=== PATIENT | female | born 1970 | race Caucasian/White ===

== ENCOUNTER 2017-03-27 22:21 | Emergency (ER) | payer OTHER ==
[~2017-03-27] VITALS: Ht 162.6 cm; Wt 79.4 kg
[~2017-03-27 22:21] MED LIST: KEFLEX500 MG PO
[2017-03-27] MEDS ORDERED: METHIMAZOLE5 M1 PO (22:27)
--- NOTE | 2017-03-27 22:36 | ED GENERAL ADULT ---
History of Present Illness General Chief Complaint: General Adult Stated Complaint: NEEDLE STICK Source: patient Exam Limitations: no limitations Vital Signs & Intake/Output Vital Signs & Intake/Output ED Intake and Output 03/28 0000 03/27 1200 Intake Total Output Total Balance Patient 175 lb Weight Weight Reported by Patient Measurement Method Allergies Coded Allergies: NO KNOWN ALLERGIES (07/12/12) PER NURSE NKDA Reconcile Medications Cephalexin (Keflex) 500 MG CAP 1 TAB PO TID CELLULITIS Methimazole 5 MG TABLET 5 MG PO DAILY THYROID (Reported) Triage Note: PT TO TRIAGE S/P NEEDLESTICK FROM OTHER PT. PT IS UNAWARE IF PT HAS ANY TRANSMITTABLE DISEASES. Triage Nurses Notes Reviewed? yes HPI: Patient is a 46-year-old female reports needlestick injury to her left index finger. 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 Area bled immediately. Patient washed her finger immediately multiple times. Patient reports that she has received her hepatitis B vaccination previously. Source patient does not have any known communicable diseases. (CAITLIN ROCK) Past History Travel History Traveled to [place] past 21 day No Medical History Any Pertinent Medical History? see below for history Endocrine: hyperthyroidism Cancer(s): thyroid cancer Tetanus Vaccine: 10/25/15 Surgical History Surgical History: non-contributory Psychosocial History What is your primary language Cape Verdean Tobacco Use: Never used Family History Hx Contributory? No (CAITLIN ROCK) Review of Systems Review of Systems Constitutional: Reports: no symptoms. Cardiovascular: Denies: chest pain. GI: Denies: abdominal pain. Musculoskeletal: Reports: no symptoms. Skin: Reports: see HPI. Neurological/Psychological: Reports: anxiety (after needlestick). Hematologic/Endocrine: Reports: other (hx hyperthyroid). Immunologic/Allergic: Reports: no symptoms. (CAITLIN ROCK) Physical Exam Physical Exam General Appearance: well developed/nourished, alert, awake, anxious Head: atraumatic, normal appearance Eyes: Bilateral: normal appearance. Ears, Nose, Throat: hearing grossly normal Neck: full range of motion Respiratory: no respiratory distress Back: normal range of motion Extremities: 1mm puncture wound left distal index finger. Neurologic/Psych: no motor/sensory deficits, awake, alert, oriented x 3, normal gait Skin: warm/dry Core Measures ACS in differential dx? No CVA/TIA Diagnosis: No Severe Sepsis Present: No Septic Shock Present: No (CAITLIN ROCK) Progress Differential Diagnoses I considered the following diagnoses in my evaluation of the patient: needle stick, communicable disease exposure Plan of Care: Orders Procedure Date/time Status HIV EXPOSURE/NEEDLESTICK 03/27 2254 Complete HEPT C ANTIBODY 03/27 2254 Complete HEPT B SURFACE ANTIGEN 03/27 2254 Complete HIV EXPOSURE/NEEDLESTICK 03/27 2235 Complete HUMAN BETA HCG SCREEN 03/27 2235 Complete HEPT C ANTIBODY 03/27 2235 Complete GAMMA GLUTAMYL TRANSFERASE 03/27 2235 Complete COMPREHENSIVE METABOLIC PANEL 03/27 2235 Complete CBC WITHOUT DIFFERENTIAL 03/27 2235 Complete Laboratory Tests 03/27/172253: Anion Gap 13, Estimated GFR > 60, BUN/Creatinine Ratio 17.1, Glucose 83, Calcium 9.0, Total Bilirubin 0.4, GGT 24, AST 34, ALT 52, Alkaline Phosphatase 86, Total Protein 7.4, Albumin 4.3, Globulin 3.1, Albumin/Globulin Ratio 1.4, Total Beta HCG NEGATIVE, CBC w Diff NO MAN DIFF REQ, RBC 4.68, MCV 84.6, MCH 28.4, RDW 14.0 , MPV 7.9, Gran % 58.6, Lymphocytes % 30.2, Monocytes % 8.1, Eosinophils % 2.7, Basophils % 0.4, Absolute Granulocytes 7.3 H, Absolute Lymphocytes 3.7 H, Absolute Monocytes 1.0 H, Absolute Eosinophils 0.3, Absolute Basophils 0.1, PUBS MCHC 33.6, Hep Bs Antigen NONREACTIVE, Hepatitis C Antibody NONREACTIVE, HIV 1&2 Antibody NONREACTIVE Patient declined HIV prophylaxis after discussion of risks and benefits. Nursing pump service supervisor notified and is contacting the medical team of the source patient to obtain HIV and hepatitis testing. Baseline testing obtained from the exposed patient. Patient to follow-up with occupational medicine. (CAITLIN ROCK) Initial ED EKG: none (CAITLIN ROCK) Departure Departure Disposition: HOME OR SELF CARE Condition: Stable Clinical Impression Primary Impression: Needle stick injury of finger Referrals: COLIN FLANAGAN,TEOFILO Additional Instructions: Follow up with occupational medicine, call in the morning for appointment. Departure Forms: Customer Survey General Discharge Information (CAITLIN ROCK) PA/[employer]ATOR [employer]NACE Co-Sign Statement Statement: ED Attending supervision documentation- I saw and evaluated the patient. I have also reviewed all the pertinent lab results and diagnostic results. I agree with the findings and the plan of care as documented in the PA's/OPERATOR [employer] FURNACE's documentation. x I have reviewed the ED Record and agree with the PA's/OPERATOR [employer] FURNACE's documentation. [] Additions or exceptions (if any) to the PAs/OPERATOR [employer]ATING FURNACE's note and plan are summarized below: [] (ZAHRAA FLANAGAN,ANGELIQUE) Critical Care Note Critical Care Note Critical Care Time: non-applicable (CAITLIN ROCK)
[2017-03-27 23:24] LABS: ABSOLUTE BASOPHIL COUNT 0.1 /CUMM (0.0-0.2); ABSOLUTE EOSINOPHIL COUNT 0.3 /CUMM (0.0-0.7); ABSOLUTE GRANULOCYTE CT 7.3 /CUMM (1.4-6.5); ABSOLUTE LYMPH COUNT 3.7 /CUMM (1.2-3.4); BASOPHIL % 0.4 % (0.0-2.0); EOSINOPHIL % 2.7 % (0-5); GRANULOCYTE % 58.6 % (42.2-75.2); HEMATOCRIT 39.6 % (37-47); MEAN CORPUSCULAR HGB 28.4 PG (27.0-31.0); MEAN CORPUSCULAR HGB CONC 33.6 G/DL (33.0-37.0); MEAN CORPUSCULAR VOLUME 84.6 FL (81.0-99.0); MEAN PLATELET VOLUME 7.9 FL (7.4-10.4); PLATELET COUNT 369 /CUMM (130-400); RED BLOOD CELL CT 4.68 /CUMM (4.20-5.40); WHITE BLOOD CELL COUNT 12.4 /CUMM (4.8-10.8)
== END 2017-03-27 22:59 ==
LOC: ERH 22:21
PROVIDERS: Physician Assistant
DX: S61.231A Puncture wound without foreign body of left index finger without damage to nail, initial encounter (principal); W46.1XXA Contact with contaminated hypodermic needle, initial encounter; Y93.89 Activity, other specified; Y92.9 Unspecified place or not applicable
CPT/HCPCS: 86803; 87389

== ENCOUNTER 2018-06-15 06:42 | Emergency (ER) | payer OTHER ==
[~2018-06-15] VITALS: Ht 162.6 cm; Wt 83.9 kg
[~2018-06-15 06:42] MED LIST changes: +METHIMAZOLE5 M1 PO
[2018-06-15 06:52] VITALS: BP 125/68
[2018-06-15] MEDS ORDERED: LEVOTHYROXINE112 MCG PO (06:54)
--- NOTE | 2018-06-15 07:00 | ED HAND/WRIST INJURY COMPLAINT ---
History of Present Illness General Chief Complaint: General Adult Stated Complaint: "I GOT STUCK" (WORK RELATED) Source: patient, old records Exam Limitations: no limitations Vital Signs & Intake/Output Vital Signs & Intake/Output Vital Signs Date Time Temp Pulse Resp B/P B/P Pulse O2 O2 Flow FiO2 Mean Ox Delivery Rate 06/15 0652 98.1 64 18 125/68 98 Room Air Allergies Coded Allergies: NO KNOWN ALLERGIES (07/12/12) PER NURSE NKDA Reconcile Medications Cephalexin (Keflex) 500 MG CAP 1 TAB PO TID CELLULITIS Levothyroxine Sodium 112 MCG TABLET 1 TAB PO DAILY HYPOTHYROIDISM (Reported) Methimazole 5 MG TABLET 5 MG PO DAILY THYROID (Reported) Triage Note: 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 PT WASHED HER HAND PRIOR TO COMING TO ER. PT DENIES ANY OTHER COMPLAINTS. RESPIRATIONS NON-LABORED. SKIN WARM/DRY. A&OX3. Triage Nurses Notes Reviewed? yes Occurred: just prior to arrival Duration: minute(s):, constant Timing: recent history Injury Environment: work Severity: mild Pain/Injury Location: Left: Hand. Context: stab Method of Injury: Needlestick LMP (ages 10-50): unknown : No Patient currently breastfeeds: No HPI: Prior to admission after giving heparin injection the patient accidentally stuck herself in the palm of the left hand. She denies other injury fever chills nausea vomiting diarrhea abdominal pain chest pain shortness breath headache dysuria rash bleeding. Past History Travel History Traveled to [place] past 21 day No Medical History Any Pertinent Medical History? see below for history Endocrine: hypothyroidism Cancer(s): thyroid cancer Tetanus Vaccine: 10/25/15 Surgical History Surgical History: non-contributory Psychosocial History What is your primary language Georgian Tobacco Use: Never used Family History Hx Contributory? No Review of Systems Review of Systems Constitutional: Reports: no symptoms. EENTM: Reports: no symptoms. Respiratory: Reports: no symptoms. Cardiovascular: Reports: no symptoms. GI: Reports: no symptoms. Genitourinary: Reports: no symptoms. Musculoskeletal: Reports: no symptoms. Skin: Reports: see HPI. Neurological/Psychological: Reports: no symptoms. Hematologic/Endocrine: Reports: no symptoms. Immunologic/Allergic: Reports: no symptoms. All Other Systems: Reviewed and Negative Physical Exam Physical Exam General Appearance: well developed/nourished, alert, awake, comfortable Head: atraumatic, normal appearance Eyes: Bilateral: normal appearance, PERRL, EOMI. Ears, Nose, Throat: normal pharynx, normal ENT inspection, hearing grossly normal Neck: normal inspection, supple, full range of motion, no midline tenderness Cardiovascular/Respiratory: normal breath sounds, normal peripheral pulses, regular rate/rhythm Back: normal inspection, normal range of motion Shoulder Left: normal range of motion, normal inspection Shoulder Right: normal range of motion, normal inspection Elbow Left: normal range of motion, normal inspection Elbow Right: normal range of motion, normal inspection Forearm Left: normal range of motion, normal inspection Forearm Right: normal range of motion, normal inspection Wrist Left: normal range of motion, normal inspection Wrist Right: normal range of motion, normal inspection Hand Left: normal inspection, normal range of motion Hand Right: normal inspection, normal range of motion Reflexes: 2+: bicep (R), bicep (L). Neurologic/Tendon: normal sensation, normal motor functions Skin: intact, normal color, warm/dry Lymphatic: no anterior cervical doc Progress Differential Diagnosis: contusion, needlestick Plan of Care: Orders Procedure Date/time Status HIV EXPOSURE/NEEDLESTICK 06/15 651 Active HUMAN BETA HCG SCREEN 06/15 0651 Active HEPT C ANTIBODY 06/15 651 Active HEPT B SURFACE ANTIBODY 06/15 0651 Active GAMMA GLUTAMYL TRANSFERASE 06/15 651 Active COMPREHENSIVE METABOLIC PANEL 06/15 651 Active CBC WITHOUT DIFFERENTIAL 06/15 651 Active TRNSFRASE ASPART AMINO 06/15 651 Active TRNSFRAS ALANINE AMINO 06/15 0651 Active Laboratory Tests 06/15/18 0710: Sodium Pending, Potassium Pending, Chloride Pending, Carbon Dioxide Pending, Anion Gap Pending, BUN Pending, Creatinine Pending, BUN/Creatinine Ratio Pending , Glucose Pending, Calcium Pending, Total Bilirubin Pending, GGT Pending, AST Pending, ALT Pending, Alkaline Phosphatase Pending, Total Protein Pending, Albumin Pending, Globulin Pending, Albumin/Globulin Ratio Pending, Total Beta HCG Pending, CBC w Diff Pending, WBC Pending, RBC Pending, Hgb Pending, Hct Pending, MCV Pending, MCH Pending, MCHC Pending, RDW Pending, Plt Count Pending, MPV Pending, Hep Bs Antibody Pending, Hepatitis C Antibody Pending, HIV 1&2 Antibody Pending Departure Departure Time of Disposition: 658 Disposition: HOME OR SELF CARE Condition: Stable Clinical Impression Primary Impression: Needlestick injury accident Referrals: Sonny FLANAGAN,Mj Holcomb (PCP/Family) Departure Forms: Customer Survey General Discharge Information
[2018-06-15 07:26] LABS: ABSOLUTE BASOPHIL COUNT 0 /CUMM (0.0-0.2); ABSOLUTE EOSINOPHIL COUNT 0.3 /CUMM (0.0-0.7); ABSOLUTE GRANULOCYTE CT 6.3 /CUMM (1.4-6.5); ABSOLUTE LYMPH COUNT 1.8 /CUMM (1.2-3.4); ABSOLUTE MONOCYTE COUNT 0.6 /CUMM (0.10-0.60); BASOPHIL % 0.3 % (0.0-2.0); EOSINOPHIL % 3.1 % (0-5); GRANULOCYTE % 69.8 % (42.2-75.2); HEMATOCRIT 38.1 % (37-47); MEAN CORPUSCULAR HGB 29.6 PG (27.0-31.0); MEAN CORPUSCULAR HGB CONC 34.4 G/DL (33.0-37.0); MEAN CORPUSCULAR VOLUME 85.9 FL (81.0-99.0); MEAN PLATELET VOLUME 7.9 FL (7.4-10.4); PLATELET COUNT 305 /CUMM (130-400); RBC DISTRIBUTION WIDTH 13.7 % (11.5-14.5); RED BLOOD CELL CT 4.44 /CUMM (4.20-5.40); WHITE BLOOD CELL COUNT 9.1 /CUMM (4.8-10.8)
== END 2018-06-15 07:23 ==
LOC: ERH 06:42
PROVIDERS: Emergency Medicine
DX: S61.432A Puncture wound without foreign body of left hand, initial encounter (principal); W46.1XXA Contact with contaminated hypodermic needle, initial encounter
CPT/HCPCS: 86803; 87389